=== PATIENT | female | born 1995 | race African-American/Black ===

== ENCOUNTER 2016-03-28 16:03 | Emergency (ER) | payer SELFPAY ==
--- NOTE | 2016-03-28 16:18 | ER Document Report ---
ED Medical Screen (RME) - General Stated Complaint: SORE THROAT Notes: Sore throat for 2 days. I greeted and performed a rapid initial assessment of this patient. Comprehensive ED assessment and evaluation of the patient, analysis of test results and completion of the medical decision making process will be conducted by additional ED providers. TRAVEL OUTSIDE OF THE [place] IN LAST 30 DAYS: No - Related Data Allergies/Adverse Reactions: Iodinated Contrast Media - Oral and [IV Dye, Iodine Containing] Allergy (Severe , Verified 02/08/16 12:55) Anaphylaxis Penicillins Allergy (Severe, Verified 02/08/16 12:55) Seizures Past Medical History Musculoskeltal Medical History: Reports Hx Musculoskeletal Trauma - dislocated knee Past Surgical History: Reports: Hx Oral Surgery - Immunizations Immunizations up to date: Yes Hx Diphtheria, Pertussis, Tetanus Vaccination: Yes
--- NOTE | 2016-03-28 17:40 | ER Document Report ---
HPI - HPI Patient complains to provider of: sore throat Pain Level: 3 Context: Patient is a 21-year-old female presents emergency room complaining of a sore throat for the past 2 days. She states that her symptoms started with nasal congestion which has caused worsening ear pain that started today. She has a sore throat that it is hurts when she swallows solids but she doesn't have any pain with swallowing liquids. She denies any productive cough. She says she has a dry cough when her nasal drainage is really bad. She denies any sinus pressure She denies any past medical history. She does not have a primary care provider - REPRODUCTIVE Reproductive: DENIES: : - DERM Skin Color: Normal Past Medical History - General Information source: Patient - Social History Smoking Status: Current Every Day Smoker Chew tobacco use (# tins/day): No Frequency of alcohol use: None Drug Abuse: None Family History: Reviewed & Not Pertinent Patient has suicidal ideation: No Patient has homicidal ideation: No Renal/ Medical History: Denies: Hx Peritoneal Dialysis Musculoskeltal Medical History: Reports Hx Musculoskeletal Trauma - dislocated knee Past Surgical History: Reports: Hx Oral Surgery - Immunizations Immunizations up to date: Yes Hx Diphtheria, Pertussis, Tetanus Vaccination: Yes Hx Pneumococcal Vaccination: 03/31/14 Vertical Provider Document - CONSTITUTIONAL Exam Limitations: No Limitations General Appearance: WD/WN, No Apparent Distress - INFECTION CONTROL TRAVEL OUTSIDE OF THE [place] IN LAST 30 DAYS: No - HEENT HEENT: Atraumatic, Normal ENT Exam, Normocephalic, PERRLA - NECK Neck: Normal Inspection. negative: Lymphadenopathy-Left, Lymphadenopathy-Right - RESPIRATORY Respiratory: Breath Sounds Normal, No Respiratory Distress - CARDIOVASCULAR Cardiovascular: Regular Rate, Regular Rhythm, No Murmur Pulses: Normal: Radial - GI/ABDOMEN Gastrointestinal: Abdomen Soft, Abdomen Non-Tender, No Organomegaly, Normal Bowel Sounds - MUSCULOSKELETAL/EXTREMETIES Musculoskeletal/Extremeties: MAEW, FROM, Non-Tender, No Edema - NEURO Level of Consciousness: Awake, Alert, Appropriate Motor/Sensory: No Motor Deficit, No Sensory Deficit - DERM Integumentary: Warm, Dry, No Rash Course - Re-evaluation Re-evalutation: 03/28/16 17:36 Patient is a 21-year-old female who clinically does not have any signs of strep throat. We'll be discharging her home with a viral pharyngitis. She can follow -up with primary care as needed. Will give her medications that she can buy [id number] for her symptoms. Discharge - Discharge Clinical Impression: Sore throat (viral) Condition: Good Disposition: HOME, SELF-CARE Instructions: Acetaminophen, Sore Throat ([facility]), Viral Syndrome ([facility]) Additional Instructions: [id number] medications he continues control your symptoms are anything that serve as a decongestant, and cough suppressant. Medications to try are DayQuil, NyQuil, Sudafed/pseudoephedrine (will be behind the counter with the pharmacist, you do not need a prescription). Take these as prescribed on the back box. Forms: Return to Work
[2016-03-28 17:46] VITALS: BP 110/67
== END 2016-03-28 18:19 | disposition home or self-care (01) ==
LOC: ER 16:03
DX: J02.9 Acute pharyngitis, unspecified (principal); R09.81 Nasal congestion; F17.200 Nicotine dependence, unspecified, uncomplicated
CPT/HCPCS: 99282

== ENCOUNTER 2016-05-08 22:29 | Emergency (ER) | payer SELFPAY ==
[2016-05-09 00:24] LABS: ABSOLUTE EOSINOPHILS # (AUTO) 0.1 10^3/uL (0.0-0.6); ABSOLUTE LYMPHOCYTES (AUTO) 0.7 10^3/uL (0.5-4.7); ABSOLUTE MONOCYTES (AUTO) 0.3 10^3/uL (0.1-1.4); ABSOLUTE NEUT (AUTO) 3.9 10^3/uL (1.7-8.2); BASOPHILS % (AUTO) 0.4 % (0-2); EOSINOPHILS % (AUTO) 2.1 % (0-6); HEMATOCRIT 45.2 % (36.0-47.0); HEMOGLOBIN 15.5 g/dL (12.0-15.5); HGB HCT DIFFERENCE 1.3; LYMPHOCYTES % (AUTO) 14.5 % (13-45); MEAN CORPUSCULAR HEMOGLOBIN 31.8 pg (27.0-33.4); MEAN CORPUSCULAR HGB CONC 34.3 g/dL (32.0-36.0); MEAN CORPUSCULAR VOLUME 93 fl (80-97); MONOCYTES % (AUTO) 5.9 % (3-13); RED BLOOD COUNT 4.88 10^6/uL (3.72-5.28); RED CELL DISTRIBUTION WIDTH 13.4 % (11.5-14.0); SEGMENTED NEUTROPHILS % (AUTO) 77.1 % (42-78); WHITE BLOOD COUNT 5.1 10^3/uL (4.0-10.5)
[2016-05-09 00:51] LABS: ALANINE AMINOTRANSFERASE 36 U/L (9-52); ALBUMIN 4.6 g/dL (3.5-5.0); ALKALINE PHOSPHATASE 81 U/L (38-126); ANION GAP 13 (5-19); ASPARTATE AMINO TRANSFERASE 34 U/L (14-36); BILIRUBIN,TOTAL 0.8 mg/dL (0.2-1.3); BLOOD UREA NITROGEN 15 mg/dL (7-20); CALCIUM 9.8 mg/dL (8.4-10.2); CARBON DIOXIDE 21 mmol/L (22-30); CHLORIDE 107 mmol/L (98-107); CREATININE RESULT 0.77 mg/dL (0.52-1.25); GLUCOSE 77 mg/dL (75-110); POTASSIUM 4.3 mmol/L (3.6-5.0); SODIUM 141.4 mmol/L (137-145); TOTAL PROTEIN 7.8 g/dL (6.3-8.2)
[2016-05-09] MEDS ORDERED: ONDANSETRON 4 MG TAB.RAPDIS PO ONE (01:19)
--- NOTE | 2016-05-09 01:22 | ER Document Report ---
ED GI/ - General Chief Complaint: Nausea/Vomiting/Diarrhea Stated Complaint: VOMITING Time seen by provider: 01:15 Notes: Patient is a 21-year-old female that comes emergency department for chief complaint of vomiting that started today, she has vomited about 6 times, she states she had a loose nonbloody stool earlier today as well. Denies blood in the vomit, fever, dysuria, flank pain, or any particular areas of abdominal pain. She is currently on her menstrual cycle. She denies any daily medications or any surgical history. TRAVEL OUTSIDE OF THE [place] IN LAST 30 DAYS: No - Related Data Allergies/Adverse Reactions: Iodinated Contrast Media - Oral and [IV Dye, Iodine Containing] Allergy (Severe , Verified 05/08/16 23:27) Anaphylaxis Penicillins Allergy (Severe, Verified 05/08/16 23:27) Seizures Past Medical History - General Information source: Patient - Social History Smoking Status: Current Every Day Smoker Frequency of alcohol use: None Drug Abuse: None Lives with: Family Family History: Reviewed & Not Pertinent Renal/ Medical History: Denies: Hx Peritoneal Dialysis Musculoskeltal Medical History: Reports Hx Musculoskeletal Trauma - dislocated knee Past Surgical History: Reports: Hx Oral Surgery - Immunizations Immunizations up to date: Yes Hx Diphtheria, Pertussis, Tetanus Vaccination: Yes Hx Pneumococcal Vaccination: 03/31/14 Review of Systems - Review of Systems Constitutional: No symptoms reported EENT: No symptoms reported Cardiovascular: No symptoms reported Respiratory: No symptoms reported Gastrointestinal: See HPI Genitourinary: No symptoms reported Female Genitourinary: No symptoms reported Musculoskeletal: No symptoms reported Skin: No symptoms reported Hematologic/Lymphatic: No symptoms reported Neurological/Psychological: No symptoms reported Physical Exam - Vital signs Vitals: Temp Pulse Resp BP Pulse Ox 98.2 F 85 20 115/72 100 05/08/16 22:58 05/08/16 22:58 05/08/16 22:58 05/08/16 22:58 05/08/16 22:58 Interpretation: Normal - General General appearance: Appears well, Alert In distress: None - HEENT Head: Normocephalic, Atraumatic Eyes: Normal Pupils: PERRL - Respiratory Respiratory status: No respiratory distress Chest status: Nontender Breath sounds: Normal Chest palpation: Normal - Cardiovascular Rhythm: Regular. No: Tachycardia Heart sounds: Normal auscultation, S1 appreciated, S2 appreciated Murmur: No - Abdominal Inspection: Normal Distension: No distension Bowel sounds: Normal Tenderness: Tender - Mild generalized tenderness of the upper abdomen, no guarding, otherwise soft and benign abdomen - Back Back: Normal, Nontender. 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 Presentation and symptoms are most consistent with a viral gastroenteritis with vomiting, very low suspicion of acute abdomen based on presentation, workup, and improvement after Zofran. His cast treatment, return precautions, patient states understanding and agreement. - Vital Signs Vital signs: Temp Pulse Resp BP Pulse Ox 98.2 F 82 17 107/60 96 05/08/16 22:58 05/09/16 02:36 05/09/16 02:36 05/09/16 02:36 05/09/16 02:36 - Laboratory Result Diagrams: 05/09/16 00:05 05/09/16 00:05 Laboratory results interpreted by me: 05/09/16 05/09/16 00:05 00:05 Carbon Dioxide 21 L Urine Ketones 20 H Discharge - Discharge Clinical Impression: Nausea and vomiting Qualifiers: Vomiting type: unspecified Vomiting Intractability: non-intractable Qualified Code(s): R11.2 - Nausea with vomiting, unspecified Disposition: HOME, SELF-CARE Additional Instructions: Workup shows some dehydration but no other concerning abnormalities. Symptoms and exam suggest either viral syndrome, food poisoning, or other uncertain etiology. No surgical abnormalities noted on your evaluation today. Take Zofran/phenergan for nausea, rehydrate, start with bland food including toast, rice, soup, etc. Follow-up with primary care. Return to emergency department for any concerning or worsening symptoms including severe abdominal pain, uncontrolled vomiting, etc. Prescriptions: Promethazine HCl [Phenergan 25 mg Tablet] 1 - 2 tab PO Q6H PRN #20 tablet PRN Reason: Forms: Return to Work
[2016-05-09 01:42] LABS: APPEARANCE,URINE SLIGHTLY-CLOUDY; BILIRUBIN,URINE NEGATIVE (NEGATIVE); GLUCOSE, URINE NEGATIVE (NEGATIVE); KETONES,URINE 20 mg/dL (NEGATIVE); LEUKOCYTE ESTERASE,URINE NEGATIVE (NEGATIVE); NITRITE,URINE NEGATIVE (NEGATIVE); PROTEIN,URINE NEGATIVE (NEGATIVE); URINE SPECIFIC GRAVITY 1.028; UROBILINOGEN,URINE NEGATIVE mg/dL (<2.0)
[2016-05-09] MEDS ORDERED: FAMOTIDINE 20 MG TABLET PO ONE (02:17)
[2016-05-09] MEDS ORDERED: ONDANSETRON ODT 4 MG TAB (6 TAB/DSPK) PO PRN (02:21)
[2016-05-09 02:38] VITALS: BP 107/60
== END 2016-05-09 02:36 | disposition home or self-care (01) ==
LOC: ER 22:29
DX: R11.2 Nausea with vomiting, unspecified (principal); R19.7 Diarrhea, unspecified; R10.811 Right upper quadrant abdominal tenderness; R10.812 Left upper quadrant abdominal tenderness; R10.813 Right lower quadrant abdominal tenderness; F17.200 Nicotine dependence, unspecified, uncomplicated; Z88.0 Allergy status to penicillin; Z87.892 Personal history of anaphylaxis; Z91.041 Radiographic dye allergy status
CPT/HCPCS: 99284; 36415; 85025; 81025; 80053; 81001; S0119

== ENCOUNTER 2016-07-29 20:45 | Emergency (ER) | payer SELFPAY ==
[2016-07-30] MEDS ORDERED: HYDROCODONE/ACETAMINOPHEN 5-325 MG 6 TAB/DSPK PO PRN (02:06)
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
[2016-07-30 02:24] VITALS: BP 111/61
== END 2016-07-30 02:22 | disposition home or self-care (01) ==
LOC: ER 20:45
DX: M54.89 Other dorsalgia (principal); M25.512 Pain in left shoulder; F17.200 Nicotine dependence, unspecified, uncomplicated; V89.2XXA Person injured in unspecified motor-vehicle accident, traffic, initial encounter
CPT/HCPCS: 99283

== ENCOUNTER 2016-08-24 12:24 | Emergency (ER) | payer OTHER ==
[2016-08-24 12:37] VITALS: BP 112/51
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
== END 2016-08-24 15:07 | disposition home or self-care (01) ==
LOC: ER 12:24
DX: R22.0 Localized swelling, mass and lump, head (principal); H57.8 Other specified disorders of eye and adnexa
CPT/HCPCS: 99283

== ENCOUNTER 2016-09-02 13:01 | Emergency (ER) | payer SELFPAY ==
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
[2016-09-02 14:31] VITALS: BP 108/66
== END 2016-09-02 14:31 | disposition home or self-care (01) ==
LOC: ER 13:01
DX: S30.810A Abrasion of lower back and pelvis, initial encounter (principal); M79.1 Myalgia; M54.9 Dorsalgia, unspecified; M25.512 Pain in left shoulder; M54.2 Cervicalgia; R51 Headache; F17.200 Nicotine dependence, unspecified, uncomplicated; Y08.89XA Assault by other specified means, initial encounter
CPT/HCPCS: 99283

== ENCOUNTER 2017-08-05 15:37 | Emergency (ER) | payer SELFPAY ==
[2017-08-05] MEDS ORDERED: IBUPROFEN 800 MG TABLET PO ONE (17:10)
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
--- NOTE | 2017-08-05 17:56 | RADIOLOGY REPORT (SQ) ---
EXAM DESCRIPTION: KNEE LEFT 4 VIEW COMPLETED DATE/TIME: 08/05/2017 5:42 pm REASON FOR STUDY: left knee pain COMPARISON: None. NUMBER OF VIEWS: Four views. TECHNIQUE: AP, lateral, and both oblique radiographic images acquired of the left knee. LIMITATIONS: None. FINDINGS: MINERALIZATION: Normal. BONES: No acute fracture or dislocation. No worrisome bone lesions. JOINT: No effusion. SOFT TISSUES: No soft tissue swelling. No radio-opaque foreign body. OTHER: No other significant finding. IMPRESSION: NEGATIVE STUDY OF THE LEFT KNEE. NO RADIOGRAPHIC EVIDENCE OF ACUTE INJURY. TECHNICAL DOCUMENTATION: JOB ID: [id number] [employer]- All Rights Reserved Reading location - IP/workstation name: [email or web address]
[2017-08-05 18:35] VITALS: BP 97/78
== END 2017-08-05 18:35 | disposition home or self-care (01) ==
LOC: ER 15:37
DX: S83.92XA Sprain of unspecified site of left knee, initial encounter (principal); W20.8XXA Other cause of strike by thrown, projected or falling object, initial encounter; Y99.0 Civilian activity done for income or pay; F17.200 Nicotine dependence, unspecified, uncomplicated
CPT/HCPCS: 99283; 73562; L1830

== ENCOUNTER 2017-09-14 19:19 | Emergency (ER) | payer SELFPAY ==
[2017-09-14 19:35] VITALS: BP 122/68
== END 2017-09-14 21:49 | disposition left against medical advice (07) ==
LOC: ER 19:19
DX: Z53.21 Procedure and treatment not carried out due to patient leaving prior to being seen by health care provider (principal)

== ENCOUNTER 2017-09-15 03:01 | Emergency (ER) | payer SELFPAY ==
[2017-09-15] MEDS ORDERED: LIDOCAINE 1% INJ-PF (10 MG/ML) 30 ML SDV INJ ONE (04:48)
--- NOTE | 2017-09-15 04:50 | ER Document Report ---
ED Skin Rash/Insect Bite/Abscs - General Chief Complaint: Insect Bite Stated Complaint: POSSIBLE BUG BITE Time Seen by Provider: 09/15/17 04:42 Notes: Patient is a 22-year-old female that comes to the emergency department for chief complaint of a tender, raised, red area on her mid left upper abdomen that she noticed 3 days ago. She states the area has gotten worse, she thinks it might of been a bug bite but she is not sure. No other complaints or symptoms reported. No daily medications, LMP within the past month. TRAVEL OUTSIDE OF THE [place] IN LAST 30 DAYS: No - Related Data Allergies/Adverse Reactions: Iodinated Contrast- Oral and IV Dye [IV Dye, Iodine Containing] Allergy (Severe , Verified 09/02/16 13:19) Anaphylaxis Penicillins Allergy (Severe, Verified 09/02/16 13:19) Seizures Past Medical History - General Information source: Patient - Social History Smoking Status: Never Smoker Drug Abuse: None Lives with: Spouse/Significant other Family History: Reviewed & Not Pertinent Patient has suicidal ideation: No Patient has homicidal ideation: No Renal/ Medical History: Denies: Hx Peritoneal Dialysis Musculoskeltal Medical History: Reports Hx Musculoskeletal Trauma - dislocated knee Past Surgical History: Reports: Hx Oral Surgery - Immunizations Immunizations up to date: Yes Hx Diphtheria, Pertussis, Tetanus Vaccination: Yes Hx Pneumococcal Vaccination: 03/31/14 Review of Systems - Review of Systems Constitutional: No symptoms reported EENT: No symptoms reported Cardiovascular: No symptoms reported Respiratory: No symptoms reported Gastrointestinal: No symptoms reported Genitourinary: No symptoms reported Female Genitourinary: No symptoms reported Musculoskeletal: No symptoms reported Skin: See HPI Hematologic/Lymphatic: No symptoms reported Neurological/Psychological: No symptoms reported Physical Exam - Vital signs Vitals: Temp Pulse Resp BP Pulse Ox 98.5 F 94 18 107/57 L 98 09/15/17 03:06 09/15/17 03:06 09/15/17 03:06 09/15/17 03:06 09/15/17 03:06 - Notes Notes: GENERAL: Alert, interacts well. No acute distress. HEAD: Normocephalic, atraumatic. EYES: Pupils equal, round, and reactive to light. Extraocular movements intact. ENT: Oral mucosa moist, tongue midline. NECK: Full range of motion. Supple. Trachea midline. LUNGS: Clear to auscultation bilaterally, no wheezes, rales, or rhonchi. No respiratory distress. HEART: Regular rate and rhythm. No murmur ABDOMEN: Left upper abdomen near the rib line with a indurated, swollen, erythematous, tender, fluctuant abscess with mild surrounding erythema. No streaking away from the area, normal abdominal exam otherwise. EXTREMITIES: Moves all 4 extremities spontaneously. No edema, normal radial and dorsalis pedis pulses bilaterally. No cyanosis. BACK: no cervical, thoracic, lumbar midline tenderness. No saddle anesthesia, normal distal neurovascular exam. NEUROLOGICAL: Alert and oriented x3. Normal speech. [cranial nerves II through XII grossly intact]. PSYCH: Normal affect, normal mood. SKIN: Warm, dry, normal turgor. No rashes or lesions noted. Course - Re-evaluation Re-evalutation: Ultrasound placed of the abdomen, shows fluid in the abscess over the abdomen. Unremarkable examination otherwise. This was excised with a very small incision on patient request, moderate amount of purulent drainage expressed, this was packed after being cleansed, discussed packing, antibiotics, care, follow-up, and return precautions with patient in detail. Patient states understanding and agreement. - Vital Signs Vital signs: Temp Pulse Resp BP Pulse Ox 98.5 F 84 18 110/59 L 95 09/15/17 06:22 09/15/17 06:22 09/15/17 06:22 09/15/17 06:22 09/15/17 06:22 Procedures - Incision and Drainage Left upper abdomen Type: Single Anesthetic type: 1% Lidocaine mL's of anesthetic: 5 Blade size: 11 I&D procedure: Shurclens applied, Iodoform packing placed, Sterile dressing applied Incision Method: Incision made by scalpel Amount/type of drainage: Moderate amount of purulent drainage Discharge - Discharge Clinical Impression: Abscess Condition: Stable Disposition: HOME, SELF-CARE Additional Instructions: Examination is consistent with a sebaceous cyst with abscess, take medication as prescribed, pull the packing out in 2 days, clean the area with soap and water, redress. This should resolve with time. I recommend that at some point you follow-up with a senior management consultant referral for removal of the cyst because this may continue to happen. Return for any concerning symptoms including spreading redness or free from the area, fever, or any other concerning symptoms. Prescriptions: Cephalexin Monohydrate [Keflex 500 mg Capsule] 500 mg PO QID #20 capsule Referrals: GORGE CASTLE DO [ACTIVE STAFF] - Follow up as needed
[2017-09-15 06:24] VITALS: BP 110/59
== END 2017-09-15 06:27 | disposition home or self-care (01) ==
LOC: ER 03:01
DX: L02.211 Cutaneous abscess of abdominal wall (principal); Z88.0 Allergy status to penicillin; Z87.892 Personal history of anaphylaxis; Z91.041 Radiographic dye allergy status
CPT/HCPCS: 99281; 10060; A6266

== ENCOUNTER 2018-05-15 05:14 | Emergency (ER) | payer MEDICAID ==
[2018-05-15 05:19] VITALS: BP 113/84
[2018-05-15] MEDS ORDERED: KETOROLAC TROMETHAMINE 60 MG/2 ML SDV IM ONE (05:43)
--- NOTE | 2018-05-15 05:53 | ER Document Report ---
HPI - HPI Time Seen by Provider: 05/15/18 05:31 Pain Level: 3 Context: Patient is a 23-year-old female that comes to the emergency department for chief complaint of 3 days of sick symptoms including cough, congestion, chills, body aches and developing right ear pain. She states she feels like she has been running fevers as well. She was exposed to family member with the same symptoms. She has not had the flu vaccination. She denies vomiting, diarrhea, chest pain, headache. She smokes, she denies any daily medications or diagnosed medical problems. - CONSTITUTIONAL Constitutional: REPORTS: Fever, Chills - EENT EENT: REPORTS: Sore Throat, Ear Pain - right ear pain - NEURO Neurology: REPORTS: Headache - RESPIRATORY Respiratory: REPORTS: Coughing - nonproductive - REPRODUCTIVE LMP: 05/03 Reproductive: DENIES: : Past Medical History - General Information source: Patient - Social History Smoking Status: Current Every Day Smoker Smoking Education Provided: Yes - <3 min Frequency of alcohol use: Occasional Drug Abuse: None Lives with: Family Family History: Reviewed & Not Pertinent Patient has suicidal ideation: No Patient has homicidal ideation: No Renal/ Medical History: Denies: Hx Peritoneal Dialysis Musculoskeletal Medical History: Reports Hx Musculoskeletal Trauma - dislocated knee Past Surgical History: Reports: Hx Oral Surgery - Immunizations Immunizations up to date: Yes Hx Diphtheria, Pertussis, Tetanus Vaccination: Yes Hx Pneumococcal Vaccination: 03/31/14 Vertical Provider Document - CONSTITUTIONAL General Appearance: No Apparent Distress - Patient slightly unwell appearing with cough and congestion but she is not in any distress, Thin - INFECTION CONTROL TRAVEL OUTSIDE OF THE [place] IN LAST 30 DAYS: No - HEENT HEENT: Atraumatic, Normocephalic, PERRLA, Pharyngeal Erythema - Minimal. negative: Conjuctival Injection, Normal ENT Exam - Rhinorrhea, sinus congestion, postnasal drip, right ear effusion. Normal oropharyngeal exam otherwise, normal mastoids, unremarkable ENT exam otherwise., Pharyngeal Exudate, Pharyngeal Tenderness, Tympanic Membrane Red, Tympanic Membrane Bulging - NECK Neck: Normal Inspection - RESPIRATORY Respiratory: Breath Sounds Normal, No Respiratory Distress, Other - Some congestion coughing episodes - CARDIOVASCULAR Cardiovascular: Regular Rate, Regular Rhythm - GI/ABDOMEN Gastrointestinal: Abdomen Soft, Abdomen Non-Tender - BACK Back: Normal Inspection - MUSCULOSKELETAL/EXTREMETIES Musculoskeletal/Extremeties: MAEW ABBY, Non-Tender - NEURO Level of Consciousness: Awake, Alert, Appropriate Motor/Sensory: No Motor Deficit, No Sensory Deficit - DERM Integumentary: Warm, Dry, No Rash Course - Re-evaluation Re-evalutation: Patient with cough, congestion, reported fever/chills, and exposure to the same symptoms. Consistent with influenza A. Patient is 3 days into her symptoms, I did discuss Tamiflu but this will not be used because patient is outside the recommended timeframe. No hypoxia or respiratory distress. No wheezing on exam, patient states she has had some wheezing at night, she is a smoker, as a result she will be placed on prednisone in addition to symptom management. Provided with work-release on request. Discussed follow-up and return precautions. Patient states understanding and agreement. - Vital Signs Vital signs: Temp Pulse Resp BP Pulse Ox 99.5 F 95 22 H 113/84 96 05/15/18 05:15 05/15/18 05:15 05/15/18 05:15 05/15/18 05:15 05/15/18 05:15 Discharge - Discharge Clinical Impression: Cough, Rhinorrhea, Right ear pain, Body aches Condition: Stable Disposition: HOME, SELF-CARE Additional Instructions: Your evaluation is consistent with influenza A. This is a viral illness that takes time to resolve. You are contagious while running fevers. For the pressure behind the ear, use the Flonase nasal spray and Sudafed decongestant. You have been prescribed prednisone for the congestion, cough, and wheezing that you have had at night. Take as prescribed. You can take [id number] antihistamines, Tylenol, ibuprofen, etc. Stay hydrated and rest. Stop smoking. Follow-up with primary care. Return for any concerning or worsening symptoms including difficulty breathing, vomiting, or any other concerning or worsening symptoms. Prescriptions: Fluticasone Propionate [Flonase Nasal Hume 50 Mcg/Hume 16 gm] 2 sprays NASL Q12 #1 inhaler Prednisone [Deltasone 20 mg Tablet] 2 tab PO DAILY 5 Days #10 tablet Pseudoephedrine HCl [Sudafed 12 Hour] 120 mg PO Q12 PRN #14 tablet.er PRN Reason: Forms: Return to Work
== END 2018-05-15 06:02 | disposition home or self-care (01) ==
LOC: ER 05:14
DX: R05 Cough (principal); H92.01 Otalgia, right ear; R68.83 Chills (without fever); J34.89 Other specified disorders of nose and nasal sinuses; R51 Headache; R09.81 Nasal congestion; R09.82 Postnasal drip; F17.200 Nicotine dependence, unspecified, uncomplicated
CPT/HCPCS: 99282; 96372; J1885

== ENCOUNTER 2018-06-21 08:42 | Emergency (ER) | payer MEDICAID ==
[2018-06-21] MEDS ORDERED: CLINDAMYCIN HCL 150 MG CAPSULE PO ONE (09:13)
[2018-06-21] MEDS ORDERED: OXYCODONE-ACETAMINOPHEN 5-325 MG TABLET PO ONE (09:13)
[2018-06-21] MEDS ORDERED: BENZONATATE 100 MG CAPSULE PO ONE (09:13)
--- NOTE | 2018-06-21 09:18 | ER Document Report ---
HPI - HPI Patient complains to provider of: Dental pain Time Seen by Provider: 06/21/18 09:03 Onset: Yesterday Onset/Duration: Sudden Quality of pain: Achy, Throbbing Severity: Severe Pain Level: 5 Context: Patient presents to the emergency department with complaints of severe upper right dental pain. Patient reports symptoms started last night. She had left out of her hydrocodone from her previous dentist appointment on May 18. She reports she took 4 T3 starting at 1800 last night. Patient is complaining of severe pain rolling on the chair holding a blanket against her mouth. Denies fever vomiting diarrhea. Reports the dental pain just woke her up. Associated Symptoms: None. denies: Nausea, Vomiting Exacerbated by: Other - hot/cold air Relieved by: Denies Similar symptoms previously: Yes Recently seen / treated by doctor: Yes - may 18, 2018 - REPRODUCTIVE Reproductive: DENIES: : Past Medical History - General Information source: Patient Last Menstrual Period: just passed, denies - Social History Smoking Status: Unknown if Ever Smoked Cigarette use (# per day): No Frequency of alcohol use: None Drug Abuse: None Family History: Reviewed & Not Pertinent Patient has suicidal ideation: No Patient has homicidal ideation: No Renal/ Medical History: Denies: Hx Peritoneal Dialysis Musculoskeletal Medical History: Reports Hx Musculoskeletal Trauma - dislocated knee Past Surgical History: Reports: Hx Oral Surgery - Immunizations Immunizations up to date: Yes Hx Diphtheria, Pertussis, Tetanus Vaccination: Yes Hx Pneumococcal Vaccination: 03/31/14 Vertical Provider Document - CONSTITUTIONAL Agree With Documented VS: Yes Exam Limitations: No Limitations General Appearance: WD/WN, Mild Distress - crying, moaning - INFECTION CONTROL TRAVEL OUTSIDE OF THE [place] IN LAST 30 DAYS: No - HEENT HEENT: Atraumatic, Normocephalic Mouth Diagram: 1 - Patient complains of pain to Right side upper 1-2, open her mouth wide no trismus no Luther's no erythema no swelling no pustule Course - Vital Signs Vital signs: Temp Pulse Resp BP Pulse Ox 98.5 F 92 20 150/102 H 97 06/21/18 09:12 06/21/18 09:12 06/21/18 09:12 06/21/18 08:45 06/21/18 09:12 Discharge - Discharge Clinical Impression: Pain, dental Condition: Stable Disposition: HOME, SELF-CARE Instructions: Clindamycin ([facility]), Oral Narcotic Medication ([facility]), Tessalon Perles ([facility]), Toothache ([facility]) Additional Instructions: *You have been evaluated for dental pain *Take medications as prescribed *Follow up with dentist today *Return to ED for worsening condition, changes, needs Monitor your blood pressure. Your blood pressure was elevated today. This may be because you were anxious, in pain or because you need medication. It is important to follow up with your primary care provider for full evaluation. Prescriptions: Benzonatate [Tessalon Perles 100 mg Capsule] 100 mg PO ASDIR PRN #20 capsule PRN Reason: Clindamycin HCl 300 mg PO TID #15 capsule Oxycodone HCl/Acetaminophen [Percocet 5-325 mg Tablet] 1 tab PO ASDIR PRN #10 tablet PRN Reason: Forms: Elevated Blood Pressure
[2018-06-21 09:36] VITALS: BP 140/71
== END 2018-06-21 09:32 | disposition home or self-care (01) ==
LOC: ER 08:42
DX: K08.9 Disorder of teeth and supporting structures, unspecified (principal)
CPT/HCPCS: 99282; J3490 ×2

== ENCOUNTER 2018-09-01 11:41 | Emergency (ER) | payer MEDICAID ==
[2018-09-01 11:46] VITALS: BP 108/62
[2018-09-01] MEDS ORDERED: ONDANSETRON 4 MG TAB.RAPDIS PO ONE (12:11)
--- NOTE | 2018-09-01 12:13 | ER Document Report ---
ED Medical Screen (RME) - General Chief Complaint: Vomiting Stated Complaint: VOMITING Time Seen by Provider: 09/01/18 12:09 Primary Care Provider: [facility] [Provider Group] - Follow up as needed Mode of Arrival: Ambulatory Information source: Patient Notes: Patient presents emergency department with nausea vomiting since last night. Reports abdominal pain denies fever diarrhea. No complaints of pain with void. Denies . Reports her mom and her child both had this virus recently. I have greeted and performed a rapid initial assessment of this patient. A comprehensive ED assessment and evaluation of the patient, analysis of test res ults and completion of the medical decision making process will be conducted by additional ED providers. Dictation of this chart was performed using voice recognition software; therefore, there may be some unintended grammatical errors. TRAVEL OUTSIDE OF THE [place] IN LAST 30 DAYS: No - Related Data Allergies/Adverse Reactions: Iodinated Contrast- Oral and IV Dye [IV Dye, Iodine Containing] Allergy (Severe, Verified 09/01/18 11:43) Anaphylaxis Penicillins Allergy (Severe, Verified 09/01/18 11:43) Seizures Past Medical History - Social History Chew tobacco use (# tins/day): No Frequency of alcohol use: None Drug Abuse: None Renal/ Medical History: Denies: Hx Peritoneal Dialysis Musculoskeltal Medical History: Reports Hx Musculoskeletal Trauma - dislocated knee Past Surgical History: Reports: Hx Oral Surgery - Immunizations Immunizations up to date: Yes Hx Diphtheria, Pertussis, Tetanus Vaccination: Yes Physical Exam - Vital signs Vitals: Temp Pulse Resp BP Pulse Ox 98.4 F 73 18 108/62 100 09/01/18 11:45 09/01/18 11:45 09/01/18 11:45 09/01/18 11:45 09/01/18 11:45 Course - Vital Signs Vital signs: Temp Pulse Resp BP Pulse Ox 98.4 F 73 18 108/62 100 09/01/18 11:45 09/01/18 11:45 09/01/18 11:45 09/01/18 11:45 09/01/18 11:45 - Laboratory Result Diagrams: 09/01/18 12:24 09/01/18 12:24 Laboratory results interpreted by me: 09/01/18 12:24 Urine Ketones 20 H Ur Leukocyte Esterase MODERATE H Doctor's Discharge - Discharge Clinical Impression: Nausea and vomiting Condition: Good Disposition: HOME, SELF-CARE Instructions: Antinausea Medication ([facility]), Viral Syndrome ([facility]) Additional Instructions: Take Zofran sublingual tablets 1 every 6 hours as needed for nausea Referrals: [facility] [Provider Group] - Follow up as needed
[2018-09-01 12:40] LABS: ABSOLUTE EOSINOPHILS # (AUTO) 0.1 10^3/uL (0.0-0.6); ABSOLUTE LYMPHOCYTES (AUTO) 1.2 10^3/uL (0.5-4.7); ABSOLUTE MONOCYTES (AUTO) 0.5 10^3/uL (0.1-1.4); ABSOLUTE NEUT (AUTO) 4.3 10^3/uL (1.7-8.2); BASOPHILS % (AUTO) 0.4 % (0-2); EOSINOPHILS % (AUTO) 2.1 % (0-6); HEMATOCRIT 45.6 % (36.0-47.0); HEMOGLOBIN 15.5 g/dL (12.0-15.5); MEAN CORPUSCULAR HEMOGLOBIN 32.1 pg (27.0-33.4); MEAN CORPUSCULAR HGB CONC 34.1 g/dL (32.0-36.0); MEAN CORPUSCULAR VOLUME 94 fl (80-97); MONOCYTES % (AUTO) 7.4 % (3-13); PLATELET COUNT 239 10^3/uL (150-450); RED BLOOD COUNT 4.84 10^6/uL (3.72-5.28); RED CELL DISTRIBUTION WIDTH 13.2 % (11.5-14.0); SEGMENTED NEUTROPHILS % (AUTO) 70.1 % (42-78); TOTAL CELLS COUNTED % (AUTO) 100 %; WHITE BLOOD COUNT 6.1 10^3/uL (4.0-10.5)
[2018-09-01 13:04] LABS: ALANINE AMINOTRANSFERASE 27 U/L (9-52); ALBUMIN 4.4 g/dL (3.5-5.0); ALKALINE PHOSPHATASE 56 U/L (38-126); ANION GAP 9 (5-19); ASPARTATE AMINO TRANSFERASE 25 U/L (14-36); BILIRUBIN,DIRECT 0.2 mg/dL (0.0-0.4); BILIRUBIN,TOTAL 0.8 mg/dL (0.2-1.3); BLOOD UREA NITROGEN 12 mg/dL (7-20); CALCIUM 9.5 mg/dL (8.4-10.2); CARBON DIOXIDE 25 mmol/L (22-30); CHLORIDE 103 mmol/L (98-107); GLUCOSE 87 mg/dL (75-110); TOTAL PROTEIN 7.4 g/dL (6.3-8.2)
--- NOTE | 2018-09-01 14:39 | ER Document Report ---
ED General - General Chief Complaint: Vomiting Stated Complaint: VOMITING Time Seen by Provider: 09/01/18 12:09 Mode of Arrival: Ambulatory Information source: Patient TRAVEL OUTSIDE OF THE [place] IN LAST 30 DAYS: No - HPI Patient complains to provider of: Vomiting Onset: Yesterday - Last night Onset/Duration: Sudden Quality of pain: No pain Severity: None Pain Level: Denies Associated symptoms: denies: Chills, Fever Exacerbated by: Denies Relieved by: Denies Similar symptoms previously: No Recently seen / treated by doctor: No Notes: 23-year-old -German female coming in today with nausea and vomiting since last night. States other members of the family have been struggling with the same. By the time I see her she has had Zofran and is drinking luba zechariah. - Related Data Allergies/Adverse Reactions: Iodinated Contrast- Oral and IV Dye [IV Dye, Iodine Containing] Allergy (Severe, Verified 09/01/18 11:43) Anaphylaxis Penicillins Allergy (Severe, Verified 09/01/18 11:43) Seizures Past Medical History - General Information source: Patient - Social History Smoking Status: Never Smoker Chew tobacco use (# tins/day): No Frequency of alcohol use: None Drug Abuse: None Family History: Reviewed & Not Pertinent Patient has suicidal ideation: No Patient has homicidal ideation: No Renal/ Medical History: Denies: Hx Peritoneal Dialysis Musculoskeletal Medical History: Reports Hx Musculoskeletal Trauma - dislocated knee Past Surgical History: Reports: Hx Oral Surgery - Immunizations Immunizations up to date: Yes Hx Diphtheria, Pertussis, Tetanus Vaccination: Yes Hx Pneumococcal Vaccination: 03/31/14 Review of Systems - Review of Systems Notes: Constitutional: No fevers. No chills. EENT: No eye redness. No eye pain. No ear pain. No sore throat. Cardiovascular: No chest pain. No palpitations. Respiratory: No cough. No shortness of breath. No respiratory distress. Gastrointestinal: No abdominal pain. Positive for nausea and vomiting. Negative for diarrhea Genitourinary: Atraumatic. No lesions. No pain. No discharge. Musculoskeletal: Atraumatic. No swelling. No deformities. Skin: No rash or lesions. Lymphatic: No swollen lymph nodes. Neurologic: No headache. No syncope. Psychiatric: No suicidal or homicidal ideation. Physical Exam - Vital signs Vitals: Temp Pulse Resp BP Pulse Ox 98.4 F 73 18 108/62 100 09/01/18 11:45 09/01/18 11:45 09/01/18 11:45 09/01/18 11:45 09/01/18 11:45 - Notes Notes: General: Well-developed, well-nourished. In no acute distress. Non-toxic appearing. Cardiac: Well-perfused. Regular rate and rhythm. No murmurs, rubs, or gallops. Pulmonary: No respiratory distress. No cyanosis. Bilateral lung fiels are clear to auscultation. Abdominal: Non-distended. Non-rigid. Bowels sounds are present in all four quadrants. No guarding or rebound. HEENT: Head is atraumatic. Conjunctivae not reddened. No tearing. PERRL. EOMI. Orbits atraumatic. No periorbital swelling or erythema. Oropharynx is without erythema, swelling, or exudates. Neck: Supple. No adenopathy. No meningismus. Dermatologic: Warm with good turgor. No rash. Atraumatic. Chest: Atraumatic. No chest wall tenderness to palpation. Musculoskeletal: Moves all extremities well. No range of motion deficits. no muscular or joint tenderness. No paraspinal muscle tenderness. no midline spinal tenderness or step-off. Genitourinary: Examination deferred Neurologic: No gross neurologic deficits. Psychiatric: Normal mood. Course - Re-evaluation Re-evalutation: 09/01/18 14:37 Labs all look good. Patient looking good. No abdominal pain. No . Unfortunately urinalysis not completed. We will check that and make sure there is not a UTI causing the vomiting before we discharge home. 09/01/18 14:38 09/01/18 15:29 Urinalysis shows leukoesterase. We will get a urine culture and sent for go norrhea and chlamydia just in case. Will go ahead and discharge patient has previously planned with [facility] take-home pack. - Vital Signs Vital signs: Temp Pulse Resp BP Pulse Ox 98.4 F 73 18 108/62 100 09/01/18 11:45 09/01/18 11:45 09/01/18 11:45 09/01/18 11:45 09/01/18 11:45 - Laboratory Result Diagrams: 09/01/18 12:24 09/01/18 12:24 Laboratory results interpreted by me: 09/01/18 12:24 Urine Ketones 20 H Ur Leukocyte Esterase MODERATE H Discharge - Discharge Clinical Impression: Nausea and vomiting Qualifiers: Vomiting type: unspecified Vomiting Intractability: non-intractable Qualified Code(s): R11.2 - Nausea with vomiting, unspecified Condition: Good Disposition: HOME, SELF-CARE Instructions: Antinausea Medication ([facility]), Viral Syndrome ([facility]) Additional Instructions: Take Zofran sublingual tablets 1 every 6 hours as needed for nausea Referrals: [facility] [Provider Group] - Follow up as needed
[2018-09-01 15:21] LABS: APPEARANCE,URINE SLIGHTLY-CLOUDY; BILIRUBIN,URINE NEGATIVE (NEGATIVE); COLOR,URINE YELLOW; GLUCOSE, URINE NEGATIVE (NEGATIVE); KETONES,URINE 20 mg/dL (NEGATIVE); LEUKOCYTE ESTERASE,URINE MODERATE (NEGATIVE); NITRITE,URINE NEGATIVE (NEGATIVE); PROTEIN,URINE NEGATIVE (NEGATIVE); UROBILINOGEN,URINE NEGATIVE mg/dL (<2.0)
[2018-09-01] MEDS ORDERED: ONDANSETRON ODT 4 MG TAB (6 TAB/ER DISP) PO PRN (15:31)
== END 2018-09-01 15:37 | disposition home or self-care (01) ==
LOC: ER 11:41
DX: R11.2 Nausea with vomiting, unspecified (principal); Z87.892 Personal history of anaphylaxis; Z91.040 Latex allergy status; Z88.0 Allergy status to penicillin
CPT/HCPCS: 99284; 36415; 87086; 85025; 81025; 80053; 81001; S0119

== ENCOUNTER 2018-10-01 13:07 | Emergency (ER) | payer MEDICAID ==
--- NOTE | 2018-10-01 13:56 | ER Document Report ---
ED Medical Screen (RME) - General Chief Complaint: Vaginal Bleeding Stated Complaint: VAGINAL BLEEDING Time Seen by Provider: 10/01/18 13:52 Notes: 23-year-old female presents to the emergency department with chief complaint of abnormal vaginal bleeding. She states that her LMP was 7/10 and she noticed this morning at she had some brownish-red discharge when she went to the bathroom, no clots. She denies any abdominal pain but states she has a very mild pulling sensation on the right groin area. She denies fevers or chills, nausea or vomiting, diarrhea or constipation. She states her last sexual activity was about 1 week ago. She was [facility] at the [facility] on September 28 and presumptively diagnosed with bacterial vaginosis and she is currently on Flagyl. I have greeted and performed a rapid initial assessment of this patient. A comprehensive ED assessment and evaluation of the patient, analysis of test results and completion of medical decision making process will be conducted by an additional ED providers. TRAVEL OUTSIDE OF THE [place] IN LAST 30 DAYS: No - Related Data Allergies/Adverse Reactions: Iodinated Contrast- Oral and IV Dye [IV Dye, Iodine Containing] Allergy (Severe, Verified 10/01/18 13:23) Anaphylaxis Penicillins Allergy (Severe, Verified 10/01/18 13:23) Seizures Past Medical History - Social History Chew tobacco use (# tins/day): No Frequency of alcohol use: None Drug Abuse: None Renal/ Medical History: Denies: Hx Peritoneal Dialysis Musculoskeltal Medical History: Reports Hx Musculoskeletal Trauma - dislocated knee Past Surgical History: Reports: Hx Oral Surgery - Immunizations Immunizations up to date: Yes Hx Diphtheria, Pertussis, Tetanus Vaccination: Yes Physical Exam - Vital signs Vitals: Temp Pulse Resp BP Pulse Ox 97.9 F 79 18 118/86 H 99 10/01/18 13:28 10/01/18 13:28 10/01/18 13:28 10/01/18 13:28 10/01/18 13:28 - Notes Notes: PHYSICAL EXAMINATION: Reviewed vital signs and charting by RN GENERAL: Alert, interacts well. No acute distress. HEAD: Normocephalic, atraumatic. EYES: Pupils equal and round. Extraocular movements intact. NECK: Full range of motion. Trachea midline. EXTREMITIES: Moves all 4 extremities spontaneously. No edema, No cyanosis. PSYCH: Normal affect, normal mood. SKIN: Warm, dry, normal turgor. No rashes or lesions noted. Course - Vital Signs Vital signs: Temp Pulse Resp BP Pulse Ox 97.9 F 79 18 118/86 H 99 10/01/18 13:28 10/01/18 13:28 10/01/18 13:28 10/01/18 13:28 10/01/18 13:28
[2018-10-01 15:10] LABS: APPEARANCE,URINE CLOUDY; BILIRUBIN,URINE NEGATIVE (NEGATIVE); GLUCOSE, URINE NEGATIVE (NEGATIVE); KETONES,URINE TRACE mg/dL (NEGATIVE); LEUKOCYTE ESTERASE,URINE MODERATE (NEGATIVE); NITRITE,URINE NEGATIVE (NEGATIVE); PROTEIN,URINE 100 mg/dL (NEGATIVE); URINE SPECIFIC GRAVITY 1.029
[2018-10-01 15:11] LABS: COLOR,URINE YELLOW
[2018-10-01 15:13] LABS: ABSOLUTE EOSINOPHILS # (AUTO) 0.1 10^3/uL (0.0-0.6); ABSOLUTE LYMPHOCYTES (AUTO) 2.9 10^3/uL (0.5-4.7); ABSOLUTE MONOCYTES (AUTO) 0.5 10^3/uL (0.1-1.4); ABSOLUTE NEUT (AUTO) 2.9 10^3/uL (1.7-8.2); BASOPHILS % (AUTO) 0.7 % (0-2); EOSINOPHILS % (AUTO) 1.7 % (0-6); HEMATOCRIT 40.5 % (36.0-47.0); HEMOGLOBIN 13.7 g/dL (12.0-15.5); MEAN CORPUSCULAR HGB CONC 33.9 g/dL (32.0-36.0); MEAN CORPUSCULAR VOLUME 95 fl (80-97); MONOCYTES % (AUTO) 8.4 % (3-13); PLATELET COUNT 216 10^3/uL (150-450); RED BLOOD COUNT 4.29 10^6/uL (3.72-5.28); RED CELL DISTRIBUTION WIDTH 13.2 % (11.5-14.0); SEGMENTED NEUTROPHILS % (AUTO) 45.2 % (42-78); TOTAL CELLS COUNTED % (AUTO) 100 %; WHITE BLOOD COUNT 6.5 10^3/uL (4.0-10.5)
--- NOTE | 2018-10-01 15:56 | ER Document Report ---
ED GI/ - General Chief Complaint: Vaginal Bleeding Stated Complaint: VAGINAL BLEEDING Time Seen by Provider: 10/01/18 13:52 Notes: Patient is a 23-year-old female presents to the emergency department for vaginal bleeding. Patient states that she was seen at the health department on September 28 where they performed a pelvic examination with specimens. Patient states she was diagnosed with bacterial vaginosis and placed on Flagyl. Patient states she does have gonorrhea and chlamydia cultures and were told that they would not resolve until the . Patient states her last menstrual cycle was September 16. Patient reports that at that time it was the normal amount and timeframe of her normal menstrual cycle. Patient states she is sexually active and her last sexual intercourse was 1 week ago. Patient states she is not having any vaginal discharge until this morning. Patient states this morning she woke up and when going to the restroom she noticed a brown to red vaginal discharge. Patient states she feels like she has a stinging around her bladder. Patient denies urinary symptoms but does report holding her urine for long periods of time. Patient denies fever or chills. Patient denies flank pain or low back pain. Patient denies specific abdominal pain. Patient denies nausea vomiting or diarrhea. TRAVEL OUTSIDE OF THE [place] IN LAST 30 DAYS: No - Related Data Allergies/Adverse Reactions: Iodinated Contrast- Oral and IV Dye [IV Dye, Iodine Containing] Allergy (Severe, Verified 10/01/18 13:23) Anaphylaxis Penicillins Allergy (Severe, Verified 10/01/18 13:23) Seizures Past Medical History - General Information source: Patient - Social History Smoking Status: Current Every Day Smoker Chew tobacco use (# tins/day): No Frequency of alcohol use: None Drug Abuse: None Lives with: Family Family History: Reviewed & Not Pertinent Patient has suicidal ideation: No Patient has homicidal ideation: No - Past Medical History Cardiac Medical History: Reports: None Pulmonary Medical History: Reports: None EENT Medical History: Reports: None Neurological Medical History: Reports: None Endocrine Medical History: Reports: None Renal/ Medical History: Reports: None. Denies: Hx Peritoneal Dialysis Malignancy Medical History: Reports: None GI Medical History: Reports: None Musculoskeletal Medical History: Reports Hx Musculoskeletal Trauma - dislocated knee Skin Medical History: Reports None Psychiatric Medical History: Reports: None Traumatic Medical History: Reports: None Infectious Medical History: Reports: None Past Surgical History: Reports: Hx Oral Surgery - Immunizations Immunizations up to date: Yes Hx Diphtheria, Pertussis, Tetanus Vaccination: Yes Hx Pneumococcal Vaccination: 03/31/14 Review of Systems - Review of Systems Constitutional: No symptoms reported EENT: No symptoms reported Cardiovascular: No symptoms reported Respiratory: No symptoms reported Gastrointestinal: No symptoms reported Genitourinary: No symptoms reported Female Genitourinary: See HPI Musculoskeletal: No symptoms reported Skin: No symptoms reported Hematologic/Lymphatic: No symptoms reported Neurological/Psychological: No symptoms reported Physical Exam - Vital signs Vitals: Temp Pulse Resp BP Pulse Ox 97.9 F 79 18 118/86 H 99 10/01/18 13:28 10/01/18 13:28 10/01/18 13:28 10/01/18 13:28 10/01/18 13:28 Interpretation: Normal - Notes Notes: GENERAL: Well-appearing, well-nourished and in no acute distress. HEAD: Atraumatic, normocephalic. EYES: Pupils equal round and reactive to light, extraocular movements intact, sclera anicteric, conjunctiva are normal. ENT: Nares patent, oropharynx clear without exudates. Moist mucous membranes. NECK: Normal range of motion, supple without lymphadenopathy or JVD. LUNGS: Breath sounds clear to auscultation bilaterally and equal. No wheezes rales or rhonchi. HEART: Regular rate and rhythm without murmurs, rubs or gallops. ABDOMEN: Soft, nontender, normoactive bowel sounds. No guarding, no rebound. No masses appreciated. No suprapubic pain. BACK: No cervical, thoracic, lumbar midline tenderness. No saddle anesthesia, normal distal neurovascular exam. GENITOURINARY: Deferred. EXTREMITIES: Normal range of motion, no pitting or edema. No clubbing or cyanosis. NEUROLOGICAL: Cranial nerves II through XII grossly intact. Normal speech, normal gait. PSYCH: Normal mood, normal affect. SKIN: Warm, Dry, normal turgor, no rashes or lesions noted. Course - Re-evaluation Re-evalutation: 10/01/18 15:57 Upon initial assessment patient resting comfortably on stretcher and is nontoxic-appearing. Patient states she is still having some vaginal bleeding. Patient denies specific abdominal pain but states she does have a stinging feeling around her bladder. Patient's urine did have significant amount of hematuria although this can be contaminated as she is having vaginal bleeding. Patient does have leukocytes and white blood cells in the urine which is an indication of a urinary tract infection. Patient's other laboratory findings were unremarkable to include a negative test. I will perform a pelvic examination due to vaginal bleeding. I did inform the patient of this. Patient states she does not want to be tested for trichomonas, BV or yeast as she was just checked for this during her pelvic examination on the at the health department. 10/01/18 17:02 Patient was able to tolerate pelvic examination well. There was a moderate amount of red blood noted in the vaginal vault and around the cervix. There were no clots. There was a significant amount of white discharge. Patient states she has been currently being treated for bacterial vaginosis and is on Flagyl. I did discuss the possibility of obtaining a pelvic ultrasound. Patient states that she would like to continue to treat the bacterial vaginosis as well as the urinary tract infection and that that if the symptoms are worse or continue to get worse despite being on antibiotics she will return to the emergency department. Patient states that she is not currently on control. Patient states for the past 6 months her menstrual cycle began around the beginning of the month. Patient states that prior to this her menstrual cycles were the end of the month. Patient states she is not sure if this is her menstrual cycle being irregular. Patient denies control. Patient's test was negative today. - Vital Signs Vital signs: Temp Pulse Resp BP Pulse Ox 98.2 F 75 16 112/70 100 10/01/18 17:16 10/01/18 17:16 10/01/18 17:16 10/01/18 17:16 10/01/18 17:16 - Laboratory Result Diagrams: 10/01/18 14:47 Laboratory results interpreted by me: 10/01/18 14:47 Urine Protein 100 H Urine Ketones TRACE H Urine Blood LARGE H Urine Urobilinogen 2.0 H Ur Leukocyte Esterase MODERATE H Urine Ascorbic Acid 40 H 10/01/18 17:30 Laboratory 10/01/18 10/01/18 10/01/18 14:47 14:47 14:47 WBC 6.5 RBC 4.29 Hgb 13.7 Hct 40.5 MCV 95 MCH 32.0 MCHC 33.9 RDW 13.2 Plt Count 216 Seg Neutrophils % 45.2 Lymphocytes % 44.0 Monocytes % 8.4 Eosinophils % 1.7 Basophils % 0.7 Absolute Neutrophils 2.9 Absolute Lymphocytes 2.9 Absolute Monocytes 0.5 Absolute Eosinophils 0.1 Absolute Basophils 0.0 Urine Color YELLOW Urine Appearance CLOUDY Urine pH 6.0 Ur Specific Moody 1.029 Urine Protein 100 H Urine Glucose (UA) NEGATIVE Urine Ketones TRACE H Urine Blood LARGE H Urine Nitrite NEGATIVE Urine Bilirubin NEGATIVE Urine Urobilinogen 2.0 H Ur Leukocyte Esterase MODERATE H Urine WBC (Auto) 90 Urine RBC (Auto) >182 Squamous Epi Cells Auto 40 Urine Mucus (Auto) FEW Urine Ascorbic Acid 40 H Urine HCG, Qual NEGATIVE Chlamydia DNA (PCR) NOT DETECTED N.gonorrhoeae DNA (PCR) NOT DETECTED Procedures - Pelvic Exam Pelvic exam Time completed: 16:55 Cultures obtained: No Wet prep obtained: No Herpes culture obtained: No Witnessed by: PCT Notes: 10/01/18 16:55 Patient did have a moderate amount of red blood in the vaginal vault and around the cervix. There was a large amount of white discharge inside the vagina. Patient tolerated the insertion and movement of the speculum well without any cervical motion tenderness. There were no blood clots. Discharge - Discharge Clinical Impression: Vaginal bleeding Urinary tract infection Qualifiers: Urinary tract infection type: acute cystitis Hematuria presence: with hematuria Qualified Code(s): N30.01 - Acute cystitis with hematuria Condition: Stable Disposition: HOME, SELF-CARE Additional Instructions: Today you were seen in the emergency department for vaginal bleeding. You are being treated currently by the health department with Flagyl for bacterial vaginosis. Your cultures for gonorrhea and chlamydia were negative. You do have a urinary tract infection which I will place you on Macrobid for. Please take the Macrobid until its complete course. An pelvic ultrasound was offered to you to rule out any abnormality but at this time he would like to complete the course of antibiotics for both bacterial vaginosis and UTI. Please return to the emergency department for any worsening signs or symptoms to include ble eding through multiple pads within 1 hour for 2 consecutive hours, severe abdominal pain, fever or any other concerning signs or symptoms. Vaginosis, Bacterial Your exam shows you have bacterial vaginosis. This condition is due to an overgrowth of bacteria in the vagina. Symptoms may include vaginal itching or pain, a smelly discharge, and sometimes burning with urination. Normally this is not transmitted by sexual contact. Vaginosis can be treated with oral or topical antibiotics. Metronidazole (Flagyl) pills are usually effective. Topical vaginal creams include Cleocin and Metro-Gel. You should avoid sexual contact until your symptoms are all better. Call the doctor if you develop pelvic pain, fever, or problems with urination, or if you don't improve as expected. Urinary Tract Infection Your evaluation indicates that you have a urinary tract infection. This is due to germs growing in the bladder. This is a common problem. This infection usually responds quickly to antibiotics. Your antibiotic should be taken exactly as prescribed. Drink plenty of fluids -- three to four quarts a day. Occasionally, a bladder anesthetic will be prescribed to help stop the feeling of urgency until the antibiotic has a chance to clear the infection. This may cause your urine to be dark orange. Certain urine infections require a culture. If the doctor obtained a culture, the results will be back in two days. You should call to see if a change in treatment is needed. A repeat urinalysis after you finish treatment is often recommended. The physician will let you know if further testing is required. Call the doctor if you develop fever, chills, flank pain, inability to urinate, or blood in the urine. Prescriptions: Nitrofurantoin/Nitrofuran Mac [Macrobid 100 mg Capsule] 1 tab PO BID #10 capsule
[2018-10-01 16:50] LABS: CHLAM PCR NOT DETECTED (NOT DETECT)
[2018-10-01] MEDS ORDERED: NITROFURANTOIN MONOHYD/M-CRYST 100 MG CAPSULE PO ONE (17:08)
[2018-10-01 17:17] VITALS: BP 112/70
== END 2018-10-01 17:17 | disposition home or self-care (01) ==
LOC: ER 13:07
DX: N30.01 Acute cystitis with hematuria (principal); N93.9 Abnormal uterine and vaginal bleeding, unspecified; F17.200 Nicotine dependence, unspecified, uncomplicated
CPT/HCPCS: 99284; 36415; 85025; 81025; 81001; 87491; 87591; J3490; J8499

== ENCOUNTER 2019-04-08 12:42 | Emergency (ER) | payer MEDICAID ==
[2019-04-08 12:52] VITALS: BP 119/60
--- NOTE | 2019-04-08 14:04 | ER Document Report ---
ED Medical Screen (RME) - General Chief Complaint: Chemical Exposure in Eye Stated Complaint: LEFT EYE IRRITATION,REDNESS Time Seen by Provider: 04/08/19 14:01 Mode of Arrival: Ambulatory Information source: Patient Notes: Otherwise healthy 24-year-old female presenting to the emergency department chief complaint of labial abscess. Patient reports she has had an abscess to her labial area for last couple of days. She is also reporting possible stye to her left eye. She states about a week ago she had a chemical exposure to her eye, states that she was dying her hair with bleach dye and some of the dye went into her eye. She denies any visual changes, denies any blurred vision. Denies any history of abscesses in the past. Stye noted to left lower lid. I have greeted and performed a rapid initial assessment of this patient. A comprehensive ED assessment and evaluation of the patient, analysis of test results and completion of the medical decision making process will be conducted by additional ED providers. I have specifically instructed the patient or family members with the patient to immediately return to any nursing staff should anything change in the patient's condition or with their chief complaint. TRAVEL OUTSIDE OF THE [place] IN LAST 30 DAYS: No - Related Data Allergies/Adverse Reactions: Iodinated Contrast Media [IV Dye, Iodine Containing] Allergy (Severe, Verified 04/08/19 13:29) Anaphylaxis Penicillins Allergy (Severe, Verified 04/08/19 13:29) Seizures Past Medical History - Social History Chew tobacco use (# tins/day): No Frequency of alcohol use: None Drug Abuse: None Renal/ Medical History: Denies: Hx Peritoneal Dialysis Musculoskeltal Medical History: Reports Hx Musculoskeletal Trauma - dislocated knee Past Surgical History: Reports: Hx Oral Surgery - Immunizations Immunizations up to date: Yes Hx Diphtheria, Pertussis, Tetanus Vaccination: Yes Physical Exam - Vital signs Vitals: Temp Pulse Resp BP Pulse Ox 98.2 F 105 H 16 119/60 100 04/08/19 12:51 04/08/19 12:51 04/08/19 12:51 04/08/19 12:51 04/08/19 12:51 Course - Vital Signs Vital signs: Temp Pulse Resp BP Pulse Ox 98.2 F 105 H 16 119/60 100 04/08/19 12:51 04/08/19 12:51 04/08/19 12:51 04/08/19 12:51 04/08/19 12:51
== END 2019-04-08 18:16 | disposition home or self-care (01) ==
LOC: ER 12:42
DX: N76.4 Abscess of vulva (principal); H00.015 Hordeolum externum left lower eyelid; Z88.0 Allergy status to penicillin
CPT/HCPCS: 99281

== ENCOUNTER 2019-05-02 13:04 | Emergency (ER) | payer MEDICAID ==
[2019-05-02 13:39] VITALS: BP 102/66
--- NOTE | 2019-05-02 14:09 | ER Document Report ---
HPI - HPI Time Seen by Provider: 05/02/19 14:02 Pain Level: 3 Notes: 24-year-old female presents emergency room for complaints of lower back pain that has become progressively worse over the last couple of days. Patient states that she was tased in 2017 and since that time is had intermittent issues with her lower back. Denies any trauma. Denies any previous back fractures or injuries aside from being tased. States pain is sharp and worse with movements. 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 Patient states that pain radiates to the posterior right upper thigh, Denies fevers, chills, chest pain,palpitations, shortness of breath, dyspnea, nausea, vomiting, diarrhea, abdominal pain, hematuria,blurred vision, double vision, loss of vision, speech changes, LH, dizziness, syncope, headaches, neck pain, weakness, bowel or bladder dysfunction, saddle anesthesia, numbness or tingling in bilateral upper or lower extremities equally, muscle paralysis, weakness in bilateral upper or lower extremities equally or rash. Denies IV drug use. - CONSTITUTIONAL Constitutional: DENIES: Fever, Chills - REPRODUCTIVE LMP: 04/06/2019 Reproductive: DENIES: : - MUSCULOSKELETAL Musculoskeletal: DENIES: Extremity pain Past Medical History - General Information source: Patient - Social History Smoking Status: Current Every Day Smoker Chew tobacco use (# tins/day): No Frequency of alcohol use: Occasional Drug Abuse: None Family History: Reviewed & Not Pertinent Patient has suicidal ideation: No Patient has homicidal ideation: No Renal/ Medical History: Denies: Hx Peritoneal Dialysis Musculoskeletal Medical History: Reports Hx Musculoskeletal Trauma - dislocated knee Past Surgical History: Reports: Hx Oral Surgery - Immunizations Immunizations up to date: Yes Hx Diphtheria, Pertussis, Tetanus Vaccination: Yes Hx Pneumococcal Vaccination: 03/31/14 Vertical Provider Document - CONSTITUTIONAL Agree With Documented VS: Yes Exam Limitations: No Limitations General Appearance: WD/WN Notes: PHYSICAL EXAMINATION: reviewed vital signs by RN GENERAL: Well-appearing, well-nourished and in no acute distress. HEAD: Atraumatic, normocephalic. EYES: Pupils equal round and reactive to light, extraocular movements intact, conjunctiva are normal. ENT: Nares patent, oropharynx clear without exudates. Moist mucous membranes. NECK: Normal range of motion, supple without lymphadenopathy LUNGS: Breath sounds clear to auscultation bilaterally and equal. No wheezes rales or rhonchi. HEART: Regular rate and rhythm without murmurs ABDOMEN: Soft, nontender, nondistended abdomen. No guarding, no rebound. No masses appreciated. Female : deferred Musculoskeletal: Normal range of motion, no pitting or edema. No cyanosis. Pain with flexion and extension at 60 degrees, positive straight leg test on right. Normal hip rotation. DTR +2 in BLE equally. Strength 5 out of 5 both distally and proximally to bilateral lower extremities normal motor and sensory function in BLE equally. Distal pulses + 2 BLE equally. Noted right paraspinal tenderness near L2 and L3. Strength 5 out of 5 in bilateral lower extremities equally. no spinal tenderness. No CVA tenderness bilaterally. Femoral pulses + 2 bilaterally and equally. No abrasions, scars, lacerations, ecchymosis of any recent trauma. normal gait. NEUROLOGICAL: Cranial nerves grossly intact. Normal speech, normal gait. Normal sensory, motor exams PSYCH: Normal mood, normal affect. SKIN: Warm, Dry, normal turgor, no rashes or lesions noted. - INFECTION CONTROL TRAVEL OUTSIDE OF THE [place] IN LAST 30 DAYS: No Course - Re-evaluation Re-evalutation: 05/02/19 14:11 Afebrile vital stable no distress. Nurse's notes reviewed. lumbar xray remarkable for any acute fractures, masses, lesions etc. Urinalysis was normal negative hCG which was done prior to x-ray. Discussed with patient that she has sciatica, she needs to take muscle relaxers and anti-inflammatories as directed, she does need to follow-up with hvac specialist in the primary care provider if her symptoms become worse and for management of her sciatica. She may or may not need further imaging studies done with the hvac specialist, however she needs to go to the hvac specialist to determine this. Patient had full range of motion with lumbar spine with tenderness with noted right paraspinal tenderness on palpation, no focal neurological deficits on examination, neurovascularly intact. Patient given 60 mg of Toradol IM to help with pain. Discussed with patient to apply heat 20 minutes on 20 minutes off several times a day. Advised to not drink alcohol, operate machinery or drive while taking muscle relaxers and cause sedation or impairment of cognitive function. After performing a Medical Screening Examination, I estimate there is LOW risk for EXPANDING OR RUPTURED ABDOMINAL AORTIC ANEURYSM, CAUDA EQUINA SYNDROME, EPIDURAL MASS ABSCESS OR LESION(S), OSTEOMYELITIS,PERSONAL HISTORY OF CANCER, IMMUNOSUPPERSSSION, HISTORY OF IV DRUG USE, FRACTURE, CORD COMPERSSION, CANCER, RETROPERITONEAL BLEED, SPINAL EPIDURAL HEMATOMA, or HERNIATED DISK CAUSING SEVERE SPINAL STENOSIS, thus I consider the discharge disposition reasonable. I have reevaluated this patient multiple times and no significant life threatening changes are noted. The patient and I have discussed the diagnosis and risks, and we agree with discharging home and close follow-up. We also discussed returning to the Emergency Department immediately if new or worsening symptoms occur with the understanding that symptoms and presentations can change. We have discussed the symptoms which are most concerning (e.g., saddle anesthesia, urinary or bowel incontinence or retention, changing or worsening pain) that necessitate immediate return. - Vital Signs Vital signs: Temp Pulse Resp BP Pulse Ox 98.5 F 81 18 102/66 99 05/02/19 13:37 05/02/19 13:37 05/02/19 13:37 05/02/19 13:37 05/02/19 13:37 Discharge - Discharge Clinical Impression: Lower back pain Qualifiers: Chronicity: acute Back pain laterality: right Sciatica presence: with sciatica Sciatica laterality: sciatica of right side Qualified Code(s): M54.41 - Lumbago with sciatica, right side Condition: Stable Disposition: HOME, SELF-CARE Instructions: Low Back Pain ([facility]), Muscle Relaxers ([facility]), Muscle Strain ([facility]), Myalagia (Muscle Pain) ([facility]), Warm Packs ([facility]) Additional Instructions: Your of your lower back was normal. We will treat you with muscle relaxers and anti-inflammatory medication. Do not drive, drink alcohol or operate heavy mach inery while taking this medication cause sedation or impairment of cognitive function. Work note has been given. Apply heat 20 minutes on 20 minutes off several times a day. Follow-up with primary care provider or hvac specialist for further evaluation of your care. Return immediately for any new or worsening symptoms. Follow up with primary care provider, call tomorrow to make followup appointment. Prescriptions: Naproxen 500 mg PO BID #10 tablet Methocarbamol [Robaxin 500 mg Tablet] 500 mg PO QID PRN #15 tablet PRN Reason: Forms: Return to Work Referrals: SILVESTRE JONES MD [COMMUNITY BASED STAFF] - Follow up as needed NEVILLE SZYMANSKI MD [ACTIVE STAFF] - Follow up as needed
[2019-05-02 14:44] LABS: APPEARANCE,URINE CLOUDY; BILIRUBIN,URINE NEGATIVE (NEGATIVE); COLOR,URINE YELLOW; GLUCOSE, URINE NEGATIVE (NEGATIVE); KETONES,URINE NEGATIVE (NEGATIVE); LEUKOCYTE ESTERASE,URINE NEGATIVE (NEGATIVE); NITRITE,URINE NEGATIVE (NEGATIVE); PROTEIN,URINE NEGATIVE (NEGATIVE); URINE SPECIFIC GRAVITY 1.024; UROBILINOGEN,URINE NEGATIVE mg/dL (<2.0)
--- NOTE | 2019-05-02 15:27 | RADIOLOGY REPORT (SQ) ---
EXAM DESCRIPTION: L SPINE WHOLE COMPLETED DATE/TIME: 05/02/2019 3:10 pm REASON FOR STUDY: acute LBP, L1-L3. r/o fx, lesions COMPARISON: None. NUMBER OF VIEWS: Five views including obliques. TECHNIQUE: AP, lateral, oblique, and sacral radiographic images acquired of the lumbar spine. LIMITATIONS: None. FINDINGS: MINERALIZATION: Normal. SEGMENTATION: Normal. No transitional anatomy. ALIGNMENT: Normal. VERTEBRAE: Maintained height. No fracture or worrisome bone lesion. DISCS: Preserved height. No significant osteophytes or end plate irregularity. POSTERIOR ELEMENTS: Pedicles and facets are intact. No pars defect or posterior arch defects. HARDWARE: None in the spine. PARASPINAL SOFT TISSUES: Normal. PELVIS: Intact as visualized. No fractures or worrisome bone lesions. SI joints intact. OTHER: No other significant finding. IMPRESSION: NORMAL 5 VIEW LUMBAR SPINE. TECHNICAL DOCUMENTATION: JOB ID: [id number] 2010 [employer]- All Rights Reserved Reading location - IP/workstation name: [email or web address]
[2019-05-02] MEDS ORDERED: KETOROLAC TROMETHAMINE 60 MG/2 ML SDV IM ONE (16:03)
== END 2019-05-02 16:25 | disposition home or self-care (01) ==
LOC: ER 13:04
DX: M54.41 Lumbago with sciatica, right side (principal); F17.200 Nicotine dependence, unspecified, uncomplicated
CPT/HCPCS: 81025; 81001; 72110; J1885; 96372; 99283

== ENCOUNTER → 2019-06-08 | Outpatient (CLI) | payer MEDICAID ==
--- NOTE | 2019-06-08 11:41 | RADIOLOGY REPORT (SQ) ---
EXAM DESCRIPTION: MRI LUMBAR SPINE WITHOUT COMPLETED DATE/TIME: 06/08/2019 11:26 am REASON FOR STUDY: LOW BACK PAIN (M54.5) M54.5 LOW BACK PAIN COMPARISON: None. TECHNIQUE: Sagittal and Axial imaging includes T1, T2, STIR and gradient echo sequences. Coronal T2/ HASTE imaging. LIMITATIONS: None. FINDINGS: VISUALIZED UPPER ABDOMEN: Limited evaluation. No acute or suspicious findings suggested. SEGMENTATION: No transitional anatomy. The lowest well-developed disc space is labeled L5-S1. ALIGNMENT: Anatomic. VERTEBRAE: Intact. BONE MARROW: Normal. No marrow replacement or reactive changes. DISC SIGNAL: Normal. No significant abnormal signal or loss of height. POSTERIOR ELEMENTS: Generally intact. No pars defect evident. HARDWARE: None in the spine. CORD AND CONUS: Normal in size and signal intensity. Conus at the appropriate level. SOFT TISSUES: No aortic aneurysm seen. No bulky retroperitoneal adenopathy or mass. No paraspinal mas s or fluid. L1-L2: No significant spinal stenosis or exit foraminal stenosis. L2-L3: No significant spinal stenosis or exit foraminal stenosis. L3-L4: No significant spinal stenosis or exit foraminal stenosis. L4-L5: No significant spinal stenosis or exit foraminal stenosis. L5-S1: No significant spinal stenosis or exit foraminal stenosis. LOWER THORACIC: Incompletely imaged. No stenosis seen. SACRUM: Visualized upper sacrum intact. OTHER: No other significant findings. IMPRESSION: NORMAL MRI LUMBAR SPINE. TECHNICAL DOCUMENTATION: JOB ID: [id number] 2010 [employer]- All Rights Reserved Reading location - IP/workstation name: [email or web address]
== END ==
LOC: RAD 10:42
PROVIDERS: ATTEND Family Medicine Geriatric Medicine
DX: M54.5 Low back pain (principal)
CPT/HCPCS: 72148